=== PATIENT | male | born 1990 | race Caucasian/White ===

== ENCOUNTER 2019-03-17 21:15 | Emergency (ER) | payer OTHER ==
[~2019-03-17] VITALS: Ht 182.9 cm; Wt 97.5 kg
--- NOTE | 2019-03-17 21:22 | NUR ---
PT PRESENTS TO ED WITH NON-RADIATING EPIGASTRIC PAIN X2 MONTHS. NAUSEA WITHOUT VOMITING X1 ON THIS DAY. NO PAST MEDICAL HX. X4 QUADRANT BOWEL SOUNDS PRESENT. 5/10 PAIN. PT STATES, "I JUST DONT FEEL RIGHT." POSITIONED IN BED FOR COMFORT WITH HOB ELEVATED. ER MD AWARE. X1 SIDE RAIL UP. CONTINUE TO MONITOR.
--- NOTE | 2019-03-17 21:22 | NUR ---
Mercedes avendaño in [facility] - 03/17/19 at 2122 by JACKIE PT AMBULATED TO BED 06.
--- NOTE | 2019-03-17 21:22 | NUR ---
PT TAKEN TO BED 6
[2019-03-17 21:25] VITALS: BP 136/74
--- NOTE | 2019-03-17 21:47 | NUR ---
Dr. Fregoso evaluating patient at bedside.
[2019-03-17] MEDS ORDERED: LORazepam 0.5 MG TAB PO ONE (22:00)
[2019-03-17] MEDS ORDERED: DICYCLOMINE HCL LIQUID 20 MG, ALUMINUM HYD/MAG/SIMETHICONE 30 ML, LIDOCAINE VISCOUS 2% ... PO ONE ×3 (22:05)
--- NOTE | 2019-03-17 22:15 | NUR ---
PATIENT RESTING AT THIS TIME. NO SIGNS OF DISTRESS.
[2019-03-17 22:24] LABS: BASOPHILS % (AUTO) 0.4 % (0.0-2.0); EOSINOPHILS # (AUTO) 0.3 K/uL (0-0.4); EOSINOPHILS % (AUTO) 3.2 % (0.0-4.0); HEMATOCRIT 46.6 % (36-52); HEMOGLOBIN 15.9 g/dL (12.0-18.0); LYMPHOCYTES # (AUTO) 2.5 K/uL (2.0-11.5); LYMPHOCYTES % (AUTO) 26.2 % (20.5-51.1); MEAN CORPUSCULAR HEMOGLOBIN 30 pg (27-31); MEAN CORPUSCULAR HGB CONC 34 g/dL (33-37); MEAN CORPUSCULAR VOLUME 87.2 fL (80-94); MONOCYTES # (AUTO) 0.5 K/uL (0.8-1.0); MONOCYTES % (AUTO) 5.4 % (1.7-9.3); NEUTROPHILS % (AUTO) 64.8 % (42.2-75.2); PLATELET COUNT (AUTO) 205 K/uL (140-450); RED BLOOD CELL COUNT(AUTO) 5.34 MIL/uL (4.20-6.10); RED CELL DISTRIBUTION WIDTH 13.5 % (11.6-13.7); WHITE BLOOD COUNT (AUTO) 9.3 K/uL (4.8-10.8)
[2019-03-17 22:31] LABS: BARBITURATE, URINE NEG. ng/ml (NEG <=200); BENZODIAZEPINE, URINE NEG. ng/mL (NEG <=200); CANNABINOID, URINE NEG. ng/mL (NEG <=50); COCAINE, URINE NEG. ng/mL (NEG <=300); OPIATE, URINE NEG. ng/mL (NEG <=2000); PHENCYCLIDINE SCREEN,URINE NEG. ng/mL (NEG <=25)
[2019-03-17 22:42] LABS: ANION GAP 9.2 (8-16); CARBON DIOXIDE 33.6 mmol/L (21-32); POTASSIUM 3.8 mmol/L (3.5-5.1)
[2019-03-17 22:47] LABS: ALBUMIN 3.8 g/dL (3.4-5.0); TOTAL BILIRUBIN 0.4 mg/dL (0.0-1.0)
[2019-03-17 23:30] VITALS: BP 137/82
--- NOTE | 2019-03-17 23:40 | NUR ---
Patient discharged with v/s stable. Written and verbal after care instructions given and explained. Patient alert, oriented and verbalized understanding of instructions. Ambulatory with steady gait. All questions addressed prior to discharge. ID band removed. Patient advised to follow up with PMD. Rx of ATIVAN 0.5MG AND MYLANTA 200MG-200MG/5ML given. Patient educated on indication of medication including possible reaction and side effects. Opportunity to ask questions provided and answered.
== END 2019-03-17 23:40 | disposition home or self-care (01) ==
LOC: MED 21:15
DX: F41.9 Anxiety disorder, unspecified (principal); R10.30 Lower abdominal pain, unspecified; R19.7 Diarrhea, unspecified
CPT/HCPCS: 36415; 80053; 80305; 81002; 83690; 85025; 99283